=== PATIENT | female | born 1985 | race African-American/Black ===

== ENCOUNTER 2023-11-30 10:36 | Emergency (ER) | payer MEDICAID ==
[~2023-11-30] VITALS: Ht 172.7 cm; Wt 72.0 kg
[2023-11-30 10:44] VITALS: BP 118/71; PULSE 99; RESP 16; O2SAT 100
[2023-11-30 12:15] VITALS: TEMP 97.9
[2023-11-30] MEDS: ACETAMINOPHEN 325MG TABLET PO ONE (12:15)
[2023-11-30] MEDS ORDERED: NAPR-1176 MT (13:03)
== END 2023-11-30 14:07 | disposition home or self-care (01) ==
LOC: ER 10:36
DX: M79.641 Pain in right hand (principal); M25.531 Pain in right wrist
CPT/HCPCS: 29125; 73110; 73130; 81025; 99284